=== PATIENT | female | born 1955 | race Caucasian/White ===

== ENCOUNTER → 2019-09-02 | Outpatient (CLI) | payer BC ==
--- NOTE | 2019-09-02 12:39 | ECHOF ---
Referral Reason:R01.1 heart murmur MEASUREMENTS -------- HEIGHT: 156.2 cm WEIGHT: 95.3 kg BP: RVIDd: 3.4 cm (< 3.3) IVSd: 1.5 cm (0.6 - 1.1) LVIDd: 4.1 cm (3.9 - 5.3) LVPWd: 1.3 cm (0.6 - 1.1) IVSs: 1.9 cm LVIDs: 2.5 cm LVPWs: 1.8 cm LAESV Index (A-L): 28.12 ml/m Ao Diam: 2.9 cm (2.0 - 3.7) AV Cusp: 1.9 cm (1.5 - 2.6) LA Diam: 4.2 cm (2.7 - 3.8) EPSS: 0.7 cm MV E Dallin: 0.97 m/s MV DecT: 262 ms MV A Dallin: 0.93 m/s MV E/A Ratio: 1.04 AR PHT: 834 ms RAP: 5.00 mmHg RVSP: 29.49 mmHg MV EF SLOPE: 103.46 mm/s (70 - 150) MV EXCURSION: 1.53 cm (> 18.000) FINDINGS -------- Sinus rhythm. Study quality is good. The left ventricular size is normal. There is moderate concentric left ventricular hypertrophy. O verall left ventricular systolic function is normal with, an EF between 55 - 60 %. The diastolic fi lling pattern is normal for the age of the patient. The right ventricle is mildly enlarged. Left atrium is normal size by volume. RA appears enlarged Interatrial and interventricular septum intact. The aortic valve is trileaflet and appears structurally normal. There is mild aortic regurgitation. There is no evidence of aortic stenosis. Mild mitral regurgitation is present. Mild tricuspid regurgitation present. There is no evidence of pulmonary hypertension. The right v entricular systolic pressure, as measured by Doppler, is 29.49mmHg. Trace/mild (physiologic) pulmonic regurgitation. The aortic root size is normal. The inferior vena cava is mildly dilated. There is no pericardial effusion. CONCLUSIONS -------- 1. Sinus rhythm. Study quality is good. 2. The left ventricular size is normal. 3. There is moderate concentric left ventricular hypertrophy. 4. Overall left ventricular systolic function is normal with, an EF between 55 - 60 %. 5. The diastolic filling pattern is normal for the age of the patient. 6. The right ventricle is mildly enlarged. 7. Left atrium is normal size by volume. 8. RA appears enlarged 9. Interatrial and interventricular septum intact. 10. The aortic valve is trileaflet and appears structurally normal. 11. There is mild aortic regurgitation. 12. There is no evidence of aortic stenosis. 13. Mild mitral regurgitation is present. 14. Mild tricuspid regurgitation present. 15. There is no evidence of pulmonary hypertension. 16. The right ventricular systolic pressure, as measured by Doppler, is 29.49mmHg. 17. Trace/mild (physiologic) pulmonic regurgitation. 18. The aortic root size is normal. 19. The inferior vena cava is mildly dilated. 20. There is no pericardial effusion. URGENT CARE PHYSICIAN: Amy Novoa RDCS
== END | disposition home or self-care (01) ==
LOC: RADECHMAIN 08:15
PROVIDERS: ATTEND Family Medicine
DX: I08.3 Combined rheumatic disorders of mitral, aortic and tricuspid valves (principal)
CPT/HCPCS: 93306

== ENCOUNTER → 2023-07-03 | Outpatient (CLI) | payer MEDICARE ==
--- NOTE | 2023-07-03 13:59 | XR ---
EXAMINATION TYPE: XR Hip Complete RT DATE OF EXAM: 07/03/2023 COMPARISON: NONE HISTORY: Pain TECHNIQUE: 2 views submitted FINDINGS: There is no evidence of erosive change or acute fracture. Diffuse osteopenia. There is hypertrophic c hange in the acetabulum. Mild narrowing of the hip joint. IMPRESSION: 1. No evidence of acute fracture or dislocation. 2. 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
--- NOTE | 2023-07-03 14:01 | XR ---
EXAM TYPE: LUMBAR SPINE X RAY SERIES COMPARISON: NONE HISTORY: Pain TECHNIQUE: 4 views are submitted. FINDINGS: Alignment is anatomic. The pedicles are intact. The transverse processes are intact. There is diff use osteopenia. Multilevel moderate degenerative disc disease with severe changes at L5-S1. Minimal a nterolisthesis L4 on L5 with facet arthropathy L4-5 and L5-S1. Atherosclerotic changes of the aorta n oted. IMPRESSION: 1. Diffuse osteopenia with multilevel moderate to severe degenerative disc disease and facet arthropa thy
== END | disposition home or self-care (01) ==
LOC: RADXRYALE 13:16
PROVIDERS: ATTEND Physician Assistant
DX: M51.36 Other intervertebral disc degeneration, lumbar region (principal); M47.816 Spondylosis without myelopathy or radiculopathy, lumbar region; M85.88 Other specified disorders of bone density and structure, other site; M16.11 Unilateral primary osteoarthritis, right hip
CPT/HCPCS: 72110; 73502

== ENCOUNTER → 2023-08-08 | Outpatient (CLI) | payer MEDICARE ==
--- NOTE | 2023-08-08 19:52 | BD ---
EXAMINATION TYPE: Axial Bone Density DATE OF EXAM: 08/08/2023 CLINICAL HISTORY: 68 years old Female. ICD-10 CODE: M85.80 other disorder bone Height: 61 Weight: 199.6 FRAX RISK QUESTIONS: Alcohol (3 or more units per day): no Family History (Parent hip fracture): no Glucocorticoids (More than 3mos): no (Ex: prednisone, prednisolone, methylprednisolone, dexamethasone, and hydrocortisone). History of Fracture in Adulthood: no Secondary Osteoporosis: 1. Type 1 Diabetes: no 2. Hyperthyroidism: no 3. Menopause before 45: no 4. Malnutrition: no 5. Chronic liver disease: no Rheumatoid Arthritis: no Current Tobacco Use: no RISK FACTORS HISTORY OF: Surgery to Spine/Hip(right/left)/Wrist (right/left): no Family History of Osteoporosis: no Diet low in dairy products/other sources of calcium: yes Postmenopausal woman: yes Lost more than 2 inches in height since high school: no Additional History: EXAM MEASUREMENTS: Bone mineral densitometry was performed using the [employer] System. Bone mineral density as measured about the Lumbar spine is: ----- L1-L4(G/cm2): 0.922 T Score Values are as follows: ----- L1: -1.5 ----- L2: -1.5 ----- L3: -1.2 ----- L4: -2.1 ----- L1-L4: -1.6 Z Score Values are as follows: ----- L1: -0.7 ----- L2: -0.8 ----- L3: -0.5 ----- L4: -1.4 ----- L1-L4: -0.8 Bone mineral density : baseline Bone mineral density about the R hip (g/cm2): 0.840 Bone mineral density about the L hip (g/cm2): 0.833 T Score values are as follows: -----R Neck: -1.5 -----L Neck: -2.0 -----R Total: -1.3 -----L Total: -1.4 Z Score values are as follows: -----R Neck: -0.5 -----L Neck: -1.0 -----R Total: -0.7 -----L Total: -0.8 Bone mineral density : baseline FRAX%s: The graph provided illustrates a 9.8 % chance for a major osteoporotic fx and a 1.4% chance f or the hips probability for fx in 10 years time. IMPRESSION: Osteopenia (T Score between -2.5 and -1). There is slightly increased risk of fracture and the patient may be considered for treatment. Re-Screen 2-5 years. NOTE: T-SCORE=SD OF THE YOUNG ADULT MEAN.
--- NOTE | 2023-08-10 17:01 | MM ---
Reason for Exam: Screening (asymptomatic). Patient History: Menarche at age 12. First Full-Term at age 29. Postmenopausal. Patient has history of breast feeding. Maternal aunt had breast cancer, age 50. Risk Values: Kelly 5 year model risk: 2.0%. NCI Lifetime model risk: 7.3%. Prior Study Comparison: No prior studies available for comparison. Tissue Density: The breast tissue is heterogeneously dense. This may lower the sensitivity of mammography. Findings: Analyzed By CAD. Nodular asymmetric density lateral left CC view middle depth incompletely disperses with 3-D images. No clear correlate on the MLO view. This may represent a superimposition shadow but further evaluation is recommended. Similarly, nodular density central right MLO view anterior to middle depth. Otherwise, no discrete abnormality seen. Overall Assessment: Incomplete: need additional imaging evaluation, BI-RAD 0 Management: Diagnostic Mammogram of both breasts. Diagnostic Breast Ultrasound of both breasts. Additional views right breast to include spot 3-D MLO, 3-D CC nipple in profile, and 3-D ML views. Additional views left breast to include spot 3-D CC, 3-D CC rolled medial, and 3-D ML. Targeted ultrasound of the bilateral breasts if there is any persisting abnormality. [facility] will attempt to contact patient to return for supplemental views and ultrasound if indicated. Electronically signed and approved by: Opal Bynum M.D. Radiologist
== END | disposition home or self-care (01) ==
LOC: RADMAMWWP 15:31
PROVIDERS: ATTEND Family Medicine
DX: Z12.31 Encounter for screening mammogram for malignant neoplasm of breast (principal); M85.89 Other specified disorders of bone density and structure, multiple sites; Z78.0 Asymptomatic menopausal state; Z80.3 Family history of malignant neoplasm of breast
CPT/HCPCS: 77063; 77067; 77080

== ENCOUNTER → 2023-08-16 | Outpatient (CLI) | payer MEDICARE ==
--- NOTE | 2023-08-16 15:02 | MM ---
Reason for Exam: Additional evaluation requested from abnormal screening. Last screening mammogram was performed less than 1 month ago. Patient History: Menarche at age 12. First Full-Term at age 29. Postmenopausal. Patient has history of breast feeding. Maternal aunt had breast cancer, age 50. Risk Values: Kelly 5 year model risk: 2.0%. NCI Lifetime model risk: 7.3%. Prior Study Comparison: 08/08/2023 Bilateral MG 3D screening mammo w/cad, [facility]. Tissue Density: The breast tissue is heterogeneously dense. This may lower the sensitivity of mammography. Findings: Analyzed By CAD. No persistent nodules are seen. No evidence for mass or distortion. No suspicious calcifications. Overall Assessment: Negative, BI-RAD 1 Management: Screening Mammogram of both breasts in 1 year. . Results were given to the patient verbally at the time of exam. Patient should continue monthly self-breast exams. A clinical breast exam by your physician is recommended on an annual basis. This exam should not preclude additional follow-up of suspicious palpable abnormalities. Note on Kelly scores and lifetime risk: 1. A Kelly score greater than 3% is considered moderate risk. If this is the case, consider specialist referral to assess eligibility for a risk reducing agent. 2. If overall lifetime risk for the development of breast cancer is 20% or higher, the patient may qualify for future screening with alternating mammogram and breast MRI. Electronically signed and approved by: David Okeefe M.D. Radiologis
== END | disposition home or self-care (01) ==
LOC: RADMAMWWP 13:34
PROVIDERS: ATTEND Family Medicine
DX: R92.8 Other abnormal and inconclusive findings on diagnostic imaging of breast (principal); Z78.0 Asymptomatic menopausal state; Z80.3 Family history of malignant neoplasm of breast
CPT/HCPCS: 77066; G0279; 77062